=== PATIENT | female | born 1940 | race Caucasian/White ===

== ENCOUNTER 2021-07-23 17:16 | Inpatient (IN) | payer OTHER ==
[~2021-07-23] VITALS: Ht 149.9 cm; Wt 79.8 kg
[2021-07-23] MEDS ORDERED: SODIUM CHLORIDE 0.9% 1000ML BAG (SEPSIS BOLUS) IV ONE (17:45)
[2021-07-23] MEDS ORDERED: PIPERACILLIN/TAZ 3.375G PREMIX 50 ML IV ONE (17:45)
[2021-07-23] MEDS ORDERED: VANCOMYCIN 1 G PREMIX 200 ML IV ONE (17:45)
[2021-07-23] MEDS ORDERED: SODIUM CHLORIDE 0.9% 1,000 ML IV ONE (17:45)
[2021-07-23 18:17] LABS: BASOPHILS % 0.2 % (0.0-2.0); EOSINOPHILS % 0.6 % (0.0-5.0); HEMATOCRIT. 47.6 % (36.0-48.0); LYMPHOCYTES % 15.6 % (20.0-50.0); MEAN CORPUSCULAR HEMOGLOBIN 28.9 pg (28.0-32.0); MEAN CORPUSCULAR VOLUME 91.9 fL (81.0-99.0); MEAN PLATELET VOLUME 11.4 fl (7.4-10.4); MONOCYTES % 8.5 % (2.0-8.0); NEUTROPHILS % 75.1 % (40.0-76.0); PLATELET 240 x1000/uL (130-400); RED BLOOD CELL COUNT 5.18 mill/uL (4.2-5.4); RED CELL DISTRIBUTION WIDTH 15.8 % (11.6-14.6)
[2021-07-23 18:24] LABS: CHLORIDE 140 mEq/L (98-107)
[2021-07-23 18:29] LABS: INR 1.2; PROTHROMBIN TIME 12.5 sec (9.6-11.0)
[2021-07-23 18:44] LABS: CREATINE KINASE 991 IU/L (26-192)
[2021-07-23] MEDS ORDERED: INSULIN REGULAR (HUMULIN R) 300UNITS/3ML VIAL IV NR (19:15)
[2021-07-23] MEDS ORDERED: DEXTROSE 50% WATER 50ML SYRINGE IV ONE (19:15)
[2021-07-23] MEDS ORDERED: CALCIUM GLUCONATE 100MG/ML 10ML VIAL IV NR (19:15)
[2021-07-23] MEDS ORDERED: DEXTROSE 50% WATER 50ML SYRINGE IV NR (19:30)
[2021-07-23 20:36] LABS: CLARITY URINE TURBID (CLEAR); COLOR URINE DARK YELLOW (YELLOW); KETONES URINE TRACE (NEGATIVE); LEUKOCYTE ESTERASE URINE 2+ (NEGATIVE); NITRITE URINE NEGATIVE (NEGATIVE); OCCULT BLOOD URINE 1+ (NEGATIVE); PROTEIN URINE TRACE (NEGATIVE); SPECIFIC GRAVITY URINE 1.022 (1.005-1.030); UROBILINOGEN URINE 0.2 E.U./dL (0.2-1.0)
[2021-07-24] MEDS ORDERED: SODIUM CHLORIDE 0.45% 1,000 ML IV SCH (08:30)
[2021-07-24] MEDS ORDERED: PIPERACILLIN/TAZ 3.375G PREMIX 50 ML IV SCH (09:00)
[2021-07-24] MEDS ORDERED: DIATR MEGLU/DIATRIZOATE SOLN 30ML ONE (09:02)
[2021-07-24 09:37] LABS: BG BASE EXCESS -4.9 mmol/L (-2.0-2.0); BG DEOXYHEMOGLOBIN 5.9 % (0.0-5.0); BG FRACTION INSPIRED OXYGEN 21; BG HCO3 ACT 20.4 mmol/L (22.0-26.0); BG METHEMOGLOBIN 0.1 % (0.0-1.5); BG OXYGEN SATURATION 94.1 % (92.0-98.5); BG PCO2 38.7 mmHg (35.0-45.0); BG PH 7.339 (7.350-7.450); BG PO2 77.8 mmHg (75.0-100.0); BG SAMPLE SITE LEFT RADIAL; BG TOTAL HEMOGLOBIN 12.9 g/dL (12.0-18.0); BG VENT MODE ROOM AIR
[2021-07-24 10:20] LABS: HEMATOCRIT. 43.1 % (36.0-48.0); HEMOGLOBIN. 13.3 g/dL (12.0-16.0); LYMPHOCYTES % 13.7 % (20.0-50.0); MEAN CORPUSCULAR HEMOGLOBIN 28.4 pg (28.0-32.0); MEAN CORPUSCULAR VOLUME 92.1 fL (81.0-99.0); MEAN PLATELET VOLUME 11.3 fl (7.4-10.4); NEUTROPHILS % 78.3 % (40.0-76.0); PLATELET 200 x1000/uL (130-400); RED BLOOD CELL COUNT 4.67 mill/uL (4.2-5.4)
[2021-07-24 10:21] LABS: BASOPHILS % 0.4 % (0.0-2.0); EOSINOPHILS % 1.6 % (0.0-5.0)
[2021-07-24] MEDS: DEXTROSE 5% WATER 1,000 ML IV SCH ×2 (10:45→21:06)
[2021-07-24 12:00] VITALS: BP 103/52
[2021-07-24] MEDS: FLUCONAZOLE 100MG TABLET PO SCH (12:41)
[2021-07-24 16:00] VITALS: BP 96/55
[2021-07-24] MEDS ORDERED: ONDANSETRON HCL 4MG/2ML INJ IV PRN (16:00)
[2021-07-24] MEDS ORDERED: ACETAMINOPHEN 650MG SUPP PR PRN (16:00)
[2021-07-24] MEDS ORDERED: MORPHINE SULFATE 2 MG/ML CPJ (NOT FOR IM USE) IV PRN (16:00)
[2021-07-24] MEDS ORDERED: IPRATROPIUM/ALBUTEROL 0.5-3(2.5)MG/3ML NEB HHN PRN (16:00)
[2021-07-24 17:26] LABS: VITAMIN B12 SERUM 409 pg/mL (211-911)
[2021-07-24 17:30] VITALS: BP 103/52
[2021-07-24] MEDS ORDERED: DEXTROSE 50% WATER 50ML SYRINGE IV PRN ×2 (18:00)
[2021-07-24] MEDS ORDERED: BLOOD SUGAR DIAGNOSTIC STRIP TEST SCH (21:00)
[2021-07-24] MEDS ORDERED: ENOXAPARIN 30MG/0.3ML SYR SUBCUT SCH (21:00)
[2021-07-24] MEDS ORDERED: INSULIN LISPRO 100 UNITS/ML SUBCUT SCH (21:00)
[2021-07-24] MEDS: PIPERACILLIN/TAZOBACTAM 3.375 G in DEXTROSE 5% WATER 50 ML IV SCH (21:06)
[2021-07-24] MEDS: BLOOD SUGAR DIAGNOSTIC STRIP TEST SCH (21:07)
[2021-07-24] MEDS: INSULIN LISPRO 100 UNITS/ML SUBCUT SCH (21:15)
[2021-07-24] MEDS ORDERED: NALOXONE HCL 0.4MG/ML VIAL IV PRN (21:15)
[2021-07-25 01:25] LABS: CREATINE KINASE 545 IU/L (26-192)
[2021-07-25] MEDS: BLOOD SUGAR DIAGNOSTIC STRIP TEST SCH ×4 (06:50→21:42)
[2021-07-25] MEDS: DEXTROSE 5% WATER 1,000 ML IV SCH ×2 (06:50→18:49)
[2021-07-25] MEDS: INSULIN LISPRO 100 UNITS/ML SUBCUT SCH ×4 (07:43→21:40)
[2021-07-25 08:12] LABS: ANTI-NUCLEAR ANTIBODIES DIRECT Negative (Negative)
[2021-07-25] MEDS: FLUCONAZOLE 100MG TABLET PO SCH (09:44)
[2021-07-25] MEDS: THIAMINE HCL 100MG TABLET PO SCH (09:44)
[2021-07-25] MEDS: PIPERACILLIN/TAZOBACTAM 3.375 G in DEXTROSE 5% WATER 50 ML IV SCH ×2 (09:44→21:40)
[2021-07-25 10:21] LABS: BASOPHILS % 0.3 % (0.0-2.0); HEMATOCRIT. 36.2 % (36.0-48.0); HEMOGLOBIN. 11.2 g/dL (12.0-16.0); LYMPHOCYTES % 10.6 % (20.0-50.0); MEAN CORPUSCULAR HEMOGLOBIN 29.6 pg (28.0-32.0); MEAN CORPUSCULAR VOLUME 95.1 fL (81.0-99.0); MEAN PLATELET VOLUME 12.1 fl (7.4-10.4); MONOCYTES % 5.9 % (2.0-8.0); NEUTROPHILS % 81.2 % (40.0-76.0); PLATELET 146 x1000/uL (130-400)
[2021-07-25 11:30] LABS: CHLORIDE 132 mEq/L (98-107)
[2021-07-25 11:38] LABS: LDL CHOLESTEROL 58 mg/dL (5-100)
[2021-07-25 11:39] LABS: CREATINE KINASE 670 IU/L (26-192); T4 FREE 0.77 ng/dL (0.76-1.46)
[2021-07-25 11:40] LABS: HDL CHOLESTEROL 26 mg/dL (40-59)
[2021-07-25 20:00] VITALS: BP 116/32
[2021-07-26] VITALS: BP 134/47
[2021-07-26] MEDS: DEXTROSE 5% WATER 1,000 ML IV SCH (02:45)
[2021-07-26 04:00] VITALS: BP 120/40
[2021-07-26] MEDS: PIPERACILLIN/TAZOBACTAM 3.375 G in DEXTROSE 5% WATER 50 ML IV SCH ×3 (05:00→22:28)
[2021-07-26] MEDS: BLOOD SUGAR DIAGNOSTIC STRIP TEST SCH ×4 (06:10→20:00)
[2021-07-26] MEDS: INSULIN LISPRO 100 UNITS/ML SUBCUT SCH ×4 (06:38→22:29)
[2021-07-26 08:00] VITALS: BP 124/72
[2021-07-26 08:07] LABS: BASOPHILS % 0.3 % (0.0-2.0); EOSINOPHILS % 1.8 % (0.0-5.0); HEMATOCRIT. 39.3 % (36.0-48.0); HEMOGLOBIN. 12.3 g/dL (12.0-16.0); LYMPHOCYTES % 9.5 % (20.0-50.0); MEAN CORPUSCULAR HEMOGLOBIN 28.9 pg (28.0-32.0); MEAN CORPUSCULAR VOLUME 92.1 fL (81.0-99.0); MEAN PLATELET VOLUME 12.5 fl (7.4-10.4); MONOCYTES % 3.7 % (2.0-8.0); NEUTROPHILS % 84.7 % (40.0-76.0); PLATELET 118 x1000/uL (130-400); RED BLOOD CELL COUNT 4.27 mill/uL (4.2-5.4); RED CELL DISTRIBUTION WIDTH 15.7 % (11.6-14.6)
[2021-07-26] MEDS: THIAMINE HCL 100MG TABLET PO SCH (09:20)
[2021-07-26] MEDS: FLUCONAZOLE 100MG TABLET PO SCH (09:21)
[2021-07-26] MEDS ORDERED: POTASSIUM CHLORIDE 20MEQ/PACKET PO SCH (10:45)
[2021-07-26] MEDS ORDERED: BLOOD SUGAR DIAGNOSTIC STRIP TEST SCH (11:15)
[2021-07-26] MEDS ORDERED: DEXTROSE 50% WATER 50ML SYRINGE IV PRN (11:15)
[2021-07-26 12:00] VITALS: BP 131/68
[2021-07-26 12:38] LABS: HEPATITIS B SURFACE ANTIGEN NEGATIVE
[2021-07-26] MEDS ORDERED: INSULIN GLARGINE UD 100 UNITS/ML SYR SUBCUT SCH (13:00)
[2021-07-26] MEDS: PANTOPRAZOLE SODIUM 40 MG/VIAL IV SCH ×2 (14:26→22:28)
[2021-07-26] MEDS: SODIUM CHLORIDE 0.45% 1,000 ML IV SCH ×2 (14:27→22:28)
[2021-07-26] MEDS: LACTULOSE 20G/30ML UDC PO SCH ×2 (14:27→22:28)
[2021-07-26 16:00] VITALS: BP 135/78
[2021-07-26 20:00] VITALS: BP 99/54
[2021-07-26] MEDS: INSULIN GLARGINE UD 100 UNITS/ML SYR SUBCUT SCH (22:29)
[2021-07-27] VITALS: BP 114/50
[2021-07-27] MEDS: BLOOD SUGAR DIAGNOSTIC STRIP TEST SCH ×7 (00:22→23:43)
[2021-07-27] MEDS: INSULIN LISPRO 100 UNITS/ML SUBCUT SCH ×6 (00:28→23:43)
[2021-07-27 04:00] VITALS: BP 117/41
[2021-07-27] MEDS: LACTULOSE 20G/30ML UDC PO SCH ×4 (05:39→21:41)
[2021-07-27] MEDS: SODIUM CHLORIDE 0.45% 1,000 ML IV SCH (05:39)
[2021-07-27 08:00] VITALS: BP 136/61
[2021-07-27] MEDS: PIPERACILLIN/TAZOBACTAM 3.375 G in DEXTROSE 5% WATER 50 ML IV SCH ×2 (09:43→21:41)
[2021-07-27] MEDS: FLUCONAZOLE 100MG TABLET PO SCH (09:43)
[2021-07-27] MEDS: PANTOPRAZOLE SODIUM 40 MG/VIAL IV SCH ×2 (09:43→21:41)
[2021-07-27] MEDS: THIAMINE HCL 100MG TABLET PO SCH (09:43)
[2021-07-27] MEDS: INSULIN GLARGINE UD 100 UNITS/ML SYR SUBCUT SCH ×2 (09:56→21:45)
[2021-07-27 11:21] LABS: BASOPHILS % 0.4 % (0.0-2.0); EOSINOPHILS % 1.3 % (0.0-5.0); HEMATOCRIT. 37.6 % (36.0-48.0); HEMOGLOBIN. 12.2 g/dL (12.0-16.0); LYMPHOCYTES % 9.2 % (20.0-50.0); MEAN CORPUSCULAR HEMOGLOBIN 29.6 pg (28.0-32.0); MEAN CORPUSCULAR VOLUME 90.9 fL (81.0-99.0); MEAN PLATELET VOLUME 12.6 fl (7.4-10.4); NEUTROPHILS % 85.1 % (40.0-76.0); PLATELET 109 x1000/uL (130-400); RED BLOOD CELL COUNT 4.13 mill/uL (4.2-5.4); RED CELL DISTRIBUTION WIDTH 15.2 % (11.6-14.6)
[2021-07-27 11:25] LABS: INR 1.1; PROTHROMBIN TIME 11.3 sec (9.6-11.0)
[2021-07-27 12:00] VITALS: BP 136/61
[2021-07-27] MEDS: KCL 20MEQ/100ML PREMIX 100 ML IV SCH ×3 (15:16→21:41)
[2021-07-27] MEDS: DEXTROSE 5% WATER 1,000 ML IV SCH ×2 (15:20→23:48)
[2021-07-27] MEDS ORDERED: INSULIN GLARGINE UD 100 UNITS/ML SYR SUBCUT NR (15:30)
[2021-07-27 16:00] VITALS: BP 139/81
[2021-07-27 20:00] VITALS: BP 152/63
[2021-07-28] VITALS: BP 147/59
[2021-07-28 04:00] VITALS: BP 132/52
[2021-07-28] MEDS: BLOOD SUGAR DIAGNOSTIC STRIP TEST SCH ×5 (04:00→20:00)
[2021-07-28] MEDS: INSULIN LISPRO 100 UNITS/ML SUBCUT SCH ×5 (05:29→21:47)
[2021-07-28] MEDS: LACTULOSE 20G/30ML UDC PO SCH ×3 (05:55→21:34)
[2021-07-28] MEDS: FLUCONAZOLE 100MG TABLET PO SCH (09:00)
[2021-07-28] MEDS: THIAMINE HCL 100MG TABLET PO SCH (09:00)
[2021-07-28] MEDS: PIPERACILLIN/TAZOBACTAM 3.375 G in DEXTROSE 5% WATER 50 ML IV SCH ×2 (10:00→21:33)
[2021-07-28] MEDS: PANTOPRAZOLE SODIUM 40 MG/VIAL IV SCH ×2 (10:00→21:34)
[2021-07-28] MEDS: INSULIN GLARGINE UD 100 UNITS/ML SYR SUBCUT SCH ×2 (10:01→21:40)
[2021-07-28] MEDS: DEXTROSE 5% WATER 1,000 ML IV SCH ×2 (10:03→18:58)
[2021-07-28 12:00] VITALS: BP 111/54
[2021-07-28 12:08] LABS: BASOPHILS % 0.3 % (0.0-2.0); EOSINOPHILS % 1.4 % (0.0-5.0); HEMOGLOBIN. 11.5 g/dL (12.0-16.0); LYMPHOCYTES % 9.7 % (20.0-50.0); MEAN CORPUSCULAR HEMOGLOBIN 28.6 pg (28.0-32.0); MEAN CORPUSCULAR VOLUME 89.5 fL (81.0-99.0); MEAN PLATELET VOLUME 12.4 fl (7.4-10.4); MONOCYTES % 4.8 % (2.0-8.0); NEUTROPHILS % 83.8 % (40.0-76.0); PLATELET 114 x1000/uL (130-400); RED BLOOD CELL COUNT 4.03 mill/uL (4.2-5.4); RED CELL DISTRIBUTION WIDTH 15.2 % (11.6-14.6)
[2021-07-28 12:17] LABS: CHLORIDE 140 mEq/L (98-107)
[2021-07-28 12:31] LABS: INR 1.1; PROTHROMBIN TIME 11.3 sec (9.6-11.0)
[2021-07-28] MEDS ORDERED: POTASSIUM CHLORIDE 20MEQ TABLET SR PO NR (15:30)
[2021-07-28] MEDS ORDERED: POTASSIUM CHLORIDE 20MEQ/PACKET PO NR (15:45)
[2021-07-28 16:00] VITALS: BP 158/56
[2021-07-28 20:00] VITALS: BP 157/80
[2021-07-29] VITALS: BP 150/66
[2021-07-29] MEDS: INSULIN LISPRO 100 UNITS/ML SUBCUT SCH ×6 (00:54→21:30)
[2021-07-29] MEDS: BLOOD SUGAR DIAGNOSTIC STRIP TEST SCH ×6 (00:54→20:00)
[2021-07-29 04:00] VITALS: BP 160/88
[2021-07-29] MEDS: DEXTROSE 5% WATER 1,000 ML IV SCH ×2 (04:20→14:51)
[2021-07-29] MEDS: LACTULOSE 20G/30ML UDC PO SCH ×3 (06:00→21:30)
[2021-07-29 08:00] VITALS: BP 130/66
[2021-07-29 08:37] LABS: PROTHROMBIN TIME 10.9 sec (9.6-11.0)
[2021-07-29 08:39] LABS: BASOPHILS % 0.4 % (0.0-2.0); EOSINOPHILS % 1.5 % (0.0-5.0); HEMATOCRIT. 34.1 % (36.0-48.0); HEMOGLOBIN. 11.1 g/dL (12.0-16.0); LYMPHOCYTES % 10.5 % (20.0-50.0); MEAN CORPUSCULAR HEMOGLOBIN 28.7 pg (28.0-32.0); MEAN CORPUSCULAR VOLUME 88.3 fL (81.0-99.0); MEAN PLATELET VOLUME 12.8 fl (7.4-10.4); MONOCYTES % 3.7 % (2.0-8.0); NEUTROPHILS % 83.9 % (40.0-76.0); PLATELET 114 x1000/uL (130-400); RED BLOOD CELL COUNT 3.87 mill/uL (4.2-5.4); RED CELL DISTRIBUTION WIDTH 14.9 % (11.6-14.6)
[2021-07-29] MEDS ORDERED: POTASSIUM CHLORIDE 20MEQ/PACKET PO NR (10:30)
[2021-07-29 12:00] VITALS: BP 152/76
[2021-07-29 12:24] LABS: PHOSPHORUS 1.4 mg/dL (2.5-4.9)
[2021-07-29] MEDS: INSULIN GLARGINE UD 100 UNITS/ML SYR SUBCUT SCH ×2 (12:29→21:38)
[2021-07-29] MEDS: THIAMINE HCL 100MG TABLET PO SCH (12:30)
[2021-07-29] MEDS: PANTOPRAZOLE SODIUM 40 MG/VIAL IV SCH ×2 (12:30→21:30)
[2021-07-29] MEDS: FLUCONAZOLE 100MG TABLET PO SCH (14:51)
[2021-07-29] MEDS ORDERED: FLUCONAZOLE 100MG TABLET PO SCH (15:00)
[2021-07-29 16:00] VITALS: BP 131/113
[2021-07-29] MEDS ORDERED: POTASSIUM PHOS,M-BASIC-D-BASIC 10 MMOL in DEXT 5% WATER 246.6667 ML IV NR (17:00)
[2021-07-29 20:00] VITALS: BP 98/60
[2021-07-30] VITALS: BP 150/58
[2021-07-30] MEDS: BLOOD SUGAR DIAGNOSTIC STRIP TEST SCH ×7 (00:53→23:52)
[2021-07-30] MEDS: DEXTROSE 5% WATER 1,000 ML IV SCH ×2 (00:57→10:52)
[2021-07-30] MEDS: INSULIN LISPRO 100 UNITS/ML SUBCUT SCH ×7 (00:58→23:52)
[2021-07-30 04:00] VITALS: BP 160/72
[2021-07-30] MEDS: LACTULOSE 20G/30ML UDC PO SCH ×3 (05:08→21:48)
[2021-07-30 07:28] LABS: BASOPHILS % 0.4 % (0.0-2.0); HEMATOCRIT. 36.1 % (36.0-48.0); HEMOGLOBIN. 11.7 g/dL (12.0-16.0); LYMPHOCYTES % 8.2 % (20.0-50.0); MEAN CORPUSCULAR HEMOGLOBIN 28.9 pg (28.0-32.0); MEAN CORPUSCULAR VOLUME 89.3 fL (81.0-99.0); MONOCYTES % 4.1 % (2.0-8.0); NEUTROPHILS % 86.3 % (40.0-76.0); PLATELET 118 x1000/uL (130-400); RED BLOOD CELL COUNT 4.05 mill/uL (4.2-5.4); RED CELL DISTRIBUTION WIDTH 15.1 % (11.6-14.6)
[2021-07-30 07:35] LABS: PROTHROMBIN TIME 10.9 sec (9.6-11.0)
[2021-07-30 08:00] VITALS: BP 164/65
[2021-07-30 08:20] LABS: PHOSPHORUS 2.3 mg/dL (2.5-4.9)
[2021-07-30] MEDS: THIAMINE HCL 100MG TABLET PO SCH (08:20)
[2021-07-30] MEDS: PANTOPRAZOLE SODIUM 40 MG/VIAL IV SCH ×2 (08:20→20:28)
[2021-07-30] MEDS ORDERED: POTASSIUM CHLORIDE INJ 40 MEQ in DEXT 5% WATER 250 ML IV ONE (09:30)
[2021-07-30] MEDS ORDERED: POTASSIUM CHLORIDE INJ 50 MEQ in DEXT 5% WATER 500 ML IV NR (10:30)
[2021-07-30] MEDS: INSULIN GLARGINE UD 100 UNITS/ML SYR SUBCUT SCH ×2 (11:22→22:44)
[2021-07-30 12:00] VITALS: BP 150/58
[2021-07-30 16:00] VITALS: BP 145/62
[2021-07-30 20:00] VITALS: BP 152/61
[2021-07-30] MEDS ORDERED: POTASSIUM CHLORIDE 20MEQ/PACKET NG NR (22:15)
[2021-07-30] MEDS: DEXT 5% WATER + KCL 20MEQ/L 1,000 ML IV SCH (23:33)
[2021-07-31] VITALS: BP 150/80
[2021-07-31] MEDS: INSULIN LISPRO 100 UNITS/ML SUBCUT SCH ×5 (03:58→20:02)
[2021-07-31 04:00] VITALS: BP 139/69
[2021-07-31] MEDS: BLOOD SUGAR DIAGNOSTIC STRIP TEST SCH ×5 (04:00→20:03)
[2021-07-31] MEDS: LACTULOSE 20G/30ML UDC PO SCH (05:53)
[2021-07-31 06:35] LABS: PROTHROMBIN TIME 10.3 sec (9.6-11.0)
[2021-07-31 06:41] LABS: BASOPHILS % 0.6 % (0.0-2.0); EOSINOPHILS % 0.8 % (0.0-5.0); HEMATOCRIT. 35.7 % (36.0-48.0); HEMOGLOBIN. 11.6 g/dL (12.0-16.0); LYMPHOCYTES % 10.3 % (20.0-50.0); MEAN CORPUSCULAR HEMOGLOBIN 29.2 pg (28.0-32.0); MEAN CORPUSCULAR VOLUME 89.8 fL (81.0-99.0); MEAN PLATELET VOLUME 13.5 fl (7.4-10.4); MONOCYTES % 3.8 % (2.0-8.0); NEUTROPHILS % 84.5 % (40.0-76.0); PLATELET 112 x1000/uL (130-400); RED BLOOD CELL COUNT 3.98 mill/uL (4.2-5.4)
[2021-07-31 08:00] VITALS: BP 135/59
[2021-07-31] MEDS: DEXT 5% WATER + KCL 20MEQ/L 1,000 ML IV SCH ×2 (09:01→19:19)
[2021-07-31] MEDS: THIAMINE HCL 100MG TABLET PO SCH (09:02)
[2021-07-31] MEDS: PANTOPRAZOLE SODIUM 40 MG/VIAL IV SCH ×2 (09:03→20:45)
[2021-07-31] MEDS ORDERED: POTASSIUM CHLORIDE INJ 40 MEQ in DEXT 5% WATER 250 ML IV SCH (11:00)
[2021-07-31 12:00] VITALS: BP 146/62
[2021-07-31] MEDS: INSULIN GLARGINE UD 100 UNITS/ML SYR SUBCUT SCH ×2 (12:04→21:58)
[2021-07-31] MEDS: KCL 20MEQ/100ML PREMIX 100 ML IV SCH ×2 (12:13→15:15)
[2021-07-31 15:59] VITALS: BP 122/52
[2021-07-31] MEDS ORDERED: POTASSIUM CHLORIDE 20MEQ/PACKET NG NR (17:00)
[2021-07-31 20:00] VITALS: BP 156/76
[2021-07-31] MEDS ORDERED: PANTOPRAZOLE SODIUM 40 MG/VIAL IV SCH (21:00)
[2021-08-01] VITALS (7 sets, daily range): BP systolic 110–154; BP diastolic 50–69
[2021-08-01] MEDS: INSULIN LISPRO 100 UNITS/ML SUBCUT SCH ×6 (00:01→21:31)
[2021-08-01] MEDS: BLOOD SUGAR DIAGNOSTIC STRIP TEST SCH ×6 (00:01→21:20)
[2021-08-01] MEDS: DEXT 5% WATER + KCL 20MEQ/L 1,000 ML IV SCH ×2 (06:16→17:01)
[2021-08-01] MEDS ORDERED: BACTERIOSTATIC SODIUM CHLORIDE 0.9% 30ML VIAL IJ ONE (08:16)
[2021-08-01] MEDS ORDERED: POTASSIUM CHLORIDE INJ 40 MEQ in DEXT 5% WATER 250 ML IV ONE (08:45)
[2021-08-01] MEDS: THIAMINE HCL 100MG TABLET PO SCH (09:00)
[2021-08-01] MEDS ORDERED: CEFAZOLIN 1000MG PREMIX 50 ML IV NR (09:00)
[2021-08-01] MEDS: PANTOPRAZOLE SODIUM 40 MG/VIAL IV SCH ×2 (09:02→21:28)
[2021-08-01 09:51] LABS: INR 0.9; PROTHROMBIN TIME 10.2 sec (9.6-11.0)
[2021-08-01] MEDS: INSULIN GLARGINE UD 100 UNITS/ML SYR SUBCUT SCH ×2 (10:23→21:39)
[2021-08-01] MEDS ORDERED: MIDAZOLAM HCL 5 MG/5 ML VIAL ONE (11:59)
[2021-08-01] MEDS ORDERED: FENTANYL CITRATE/PF 50MCG/ML 2ML VIAL ONE (11:59)
[2021-08-01] MEDS ORDERED: MIDAZOLAM HCL 2 MG/2 ML VIAL IV PRN (12:00)
[2021-08-01] MEDS ORDERED: FENTANYL CITRATE/PF 50MCG/ML 2ML VIAL IV PRN (12:01)
[2021-08-01 17:24] LABS: BASOPHILS % 0.5 % (0.0-2.0); HEMATOCRIT. 31.7 % (36.0-48.0); HEMOGLOBIN. 10.4 g/dL (12.0-16.0); LYMPHOCYTES % 12.9 % (20.0-50.0); MEAN CORPUSCULAR VOLUME 88.4 fL (81.0-99.0); MEAN PLATELET VOLUME 12.2 fl (7.4-10.4); MONOCYTES % 5.4 % (2.0-8.0); NEUTROPHILS % 80.2 % (40.0-76.0); PLATELET 149 x1000/uL (130-400); RED BLOOD CELL COUNT 3.58 mill/uL (4.2-5.4); RED CELL DISTRIBUTION WIDTH 14.7 % (11.6-14.6)
[2021-08-02] MEDS: BLOOD SUGAR DIAGNOSTIC STRIP TEST SCH ×4 (00:59→12:00)
[2021-08-02] MEDS: DEXT 5% WATER + KCL 20MEQ/L 1,000 ML IV SCH ×2 (01:30→08:21)
[2021-08-02 03:40] VITALS: BP 138/63
[2021-08-02] MEDS: INSULIN LISPRO 100 UNITS/ML SUBCUT SCH ×5 (06:25→13:43)
[2021-08-02] MEDS: METOCLOPRAMIDE HCL 10MG/2ML VIAL IV SCH ×2 (07:21→08:10)
[2021-08-02 07:22] LABS: BASOPHILS % 0.5 % (0.0-2.0); HEMATOCRIT. 31.1 % (36.0-48.0); HEMOGLOBIN. 10.3 g/dL (12.0-16.0); LYMPHOCYTES % 15.8 % (20.0-50.0); MEAN CORPUSCULAR HEMOGLOBIN 29.1 pg (28.0-32.0); MEAN CORPUSCULAR VOLUME 87.9 fL (81.0-99.0); MEAN PLATELET VOLUME 12.3 fl (7.4-10.4); MONOCYTES % 5.8 % (2.0-8.0); NEUTROPHILS % 76.9 % (40.0-76.0); PLATELET 153 x1000/uL (130-400); RED BLOOD CELL COUNT 3.53 mill/uL (4.2-5.4); RED CELL DISTRIBUTION WIDTH 14.5 % (11.6-14.6)
[2021-08-02 07:34] LABS: PROTHROMBIN TIME 10.5 sec (9.6-11.0)
[2021-08-02 08:00] VITALS: BP 132/69
[2021-08-02] MEDS: PANTOPRAZOLE SODIUM 40 MG/VIAL IV SCH (08:09)
[2021-08-02] MEDS: THIAMINE HCL 100MG TABLET PO SCH (08:10)
[2021-08-02] MEDS: INSULIN GLARGINE UD 100 UNITS/ML SYR SUBCUT SCH (10:25)
[2021-08-02 12:00] VITALS: BP 121/64
[2021-08-02 15:17] VITALS: BP 121/64
[2021-08-02 15:31] VITALS: BP 121/64
[2021-08-02 16:00] VITALS: BP 126/50
== END 2021-08-02 17:40 | DRG 64 ==
LOC: ER 17:50 → EDBEDREQ 17:59 → EDBEDREQTM 17:59 → EDBEDREQSVC 17:59 → MICUSO 20:38 → EDBEDREQSVC 20:53 → EDBEDREQTM 20:53 → EDBEDREQ 20:53 → 8WST 07-24 10:30
PROVIDERS: ADMIT Internal Medicine; ATTEND Internal Medicine
PROC: 4A10X4Z Monitoring of Central Nervous Electrical Activity, External Approach (ICD-10-PCS; principal; 2021-07-25)
PROC: 0DB78ZX Excision of Stomach, Pylorus, Via Natural or Artificial Opening Endoscopic, Diagnostic (ICD-10-PCS; 2021-08-01)
PROC: 0DH63UZ Insertion of Feeding Device into Stomach, Percutaneous Approach (ICD-10-PCS; 2021-08-01)
DX: I63.9 Cerebral infarction, unspecified (principal); J69.0 Pneumonitis due to inhalation of food and vomit; N17.9 Acute kidney failure, unspecified; E87.0 Hyperosmolality and hypernatremia; N39.0 Urinary tract infection, site not specified; M62.82 Rhabdomyolysis; E72.20 Disorder of urea cycle metabolism, unspecified; G93.40 Encephalopathy, unspecified; E87.1 Hypo-osmolality and hyponatremia; E87.5 Hyperkalemia; I12.9 Hypertensive chronic kidney disease with stage 1 through stage 4 chronic kidney disease, or unspecified chronic kidney disease; I25.10 Atherosclerotic heart disease of native coronary artery without angina pectoris; N18.9 Chronic kidney disease, unspecified; E11.22 Type 2 diabetes mellitus with diabetic chronic kidney disease; E86.9 Volume depletion, unspecified; I51.7 Cardiomegaly; E66.9 Obesity, unspecified; E11.65 Type 2 diabetes mellitus with hyperglycemia; R13.12 Dysphagia, oropharyngeal phase; R16.0 Hepatomegaly, not elsewhere classified; K76.0 Fatty (change of) liver, not elsewhere classified; D64.9 Anemia, unspecified; E87.6 Hypokalemia; J44.9 Chronic obstructive pulmonary disease, unspecified; K57.90 Diverticulosis of intestine, part unspecified, without perforation or abscess without bleeding; Z66 Do not resuscitate; D69.6 Thrombocytopenia, unspecified; E11.43 Type 2 diabetes mellitus with diabetic autonomic (poly)neuropathy; K31.84 Gastroparesis; K29.70 Gastritis, unspecified, without bleeding; Z20.822 Contact with and (suspected) exposure to COVID-19; I49.3 Ventricular premature depolarization; G70.00 Myasthenia gravis without (acute) exacerbation; I25.2 Old myocardial infarction; Z86.73 Personal history of transient ischemic attack (TIA), and cerebral infarction without residual deficits; Z68.35 Body mass index [BMI] 35.0-35.9, adult; Z90.49 Acquired absence of other specified parts of digestive tract; Z87.11 Personal history of peptic ulcer disease; Z86.19 Personal history of other infectious and parasitic diseases
CPT/HCPCS: 36415; 36600; 70551; 71045; 74018; 74176; 76700; 80048; 80053; 80061; 81003; 82140; 82375; 82550; 82607; 82805; 82962; 83036; 83605; 83735; 83880; 84100; 84132; 84145; 84439; 84443; 84484; 85025; 86038; 86160; 86705; 86709; 86803; 87340; 87426; 87493; 88305; 88312; 88313; 93005; 93306; 93880; 95816; 99285; A6261; C1893; C9113; J0610; J0690; J1815; J2250; J2543; J2765; J3010; J3370; J3480; J3490; J7030; J7060; J7070; Q9963; A4315